=== PATIENT | female | born 1985 | race Caucasian/White ===

== ENCOUNTER 2020-09-13 19:11 | Emergency (ER) | payer OTHER ==
[~2020-09-13] VITALS: Ht 162.6 cm; Wt 83.9 kg
[2020-09-13] MEDS ORDERED: WELLBUTRIN 75 M75 M1 PO (19:25)
[2020-09-13] MEDS ORDERED: ALPRAZOLAM XR3 MG PO (19:25)
[2020-09-13] MEDS ORDERED: TOPAMAX100 MG PO (19:25)
[2020-09-13] MEDS ORDERED: VENTOLIN HFA 1818 GM INH (20:22)
[2020-09-13] MEDS ORDERED: PREDNISONE 20 M20 MG PO (20:22)
[2020-09-13] MEDS ORDERED: ZPAK PO (20:22)
[2020-09-13 20:39] VITALS: BP 144/79
== END 2020-09-13 20:40 | disposition home or self-care (01) ==
LOC: M.ERS 19:11
DX: J98.8 Other specified respiratory disorders (principal); Z20.828 Contact with and (suspected) exposure to other viral communicable diseases; F17.210 Nicotine dependence, cigarettes, uncomplicated

== ENCOUNTER 2021-02-28 17:03 | Emergency (ER) | payer OTHER ==
[~2021-02-28] VITALS: Ht 162.6 cm; Wt 86.2 kg
[~2021-02-28 17:03] MED LIST: ALPRAZOLAM XR3 MG PO; PREDNISONE 20 M20 MG PO; TOPAMAX100 MG PO; VENTOLIN HFA 1818 GM INH; WELLBUTRIN 75 M75 M1 PO; ZPAK PO
[2021-02-28] MEDS ORDERED: ALPRAZOLAM XR0.5 MG PO (17:20)
[2021-02-28 17:53] LABS: HEMATOCRIT 43.4 % (37.0-47.0); HEMOGLOBIN 14.8 gm/dL (12.0-15.0); MCH 31.2 pg (26.0-34.0); MCHC 34.1 g/dL (28.0-37.0); MCV 91.3 fL (80.0-100.0); RBC 4.76 mil/uL (4.20-5.00); RDW-CV 12.6 % (10.5-14.5); WBC 9.6 thou/uL (4.0-11.0)
[2021-02-28 17:59] LABS: CALCIUM 9.6 mg/dL (8.5-10.1); CREATININE 0.8 mg/dL (0.6-1.3); POTASSIUM 3.7 mmol/L (3.5-5.1)
[2021-02-28 18:30] VITALS: BP 140/83
== END 2021-02-28 18:30 | disposition home or self-care (01) ==
LOC: M.ERS 17:03
PROVIDERS: Emergency Medicine Emergency Medical Services
DX: S70.11XA Contusion of right thigh, initial encounter (principal); S90.01XA Contusion of right ankle, initial encounter; F17.210 Nicotine dependence, cigarettes, uncomplicated; Z79.899 Other long term (current) drug therapy; W18.30XA Fall on same level, unspecified, initial encounter; Y93.89 Activity, other specified; Y92.89 Other specified places as the place of occurrence of the external cause; Y99.9 Unspecified external cause status